=== PATIENT | female | born 1985 | race Caucasian/White ===

== ENCOUNTER 2017-05-23 15:03 | Emergency (ER) | payer OTHER ==
[2017-05-23 16:05] VITALS: BP 97/71
--- NOTE | 2017-05-23 16:58 | UC ---
Respiratory Complaint HPI - HPI Summary HPI Summary: patient presents with a sore throat and sinus congestion for the past week, is afebrile - History of Current Complaint Chief Complaint: UCRespiratory Stated Complaint: cough,sinuses Time Seen by Provider: 05/23/17 15:57 Hx Obtained From: Patient Hx Last Menstrual Period: 2014-ENDOMETRIAL ABLATION ?: No Onset/Duration: Sudden Onset, Lasting Days Timing: Constant Severity Initially: Mild Severity Currently: Moderate Character: Cough: Nonproductive Associated Signs And Symptoms: Positive: URI, Nasal Congestion - Allergies/Home Medications Allergies/Adverse Reactions: Allergies Allergy/AdvReac Type Severity Reaction Status Date / Time Latex Allergy Intermediate Rash Verified 05/23/17 16:00 Home Medications: Home Medications NK [No Home Medications Reported] 05/23/17 [History Confirmed 05/23/17] PMH/Surg Hx/FS Hx/Imm Hx Previously Healthy: Yes Other History Of: Negative For: HIV, Hepatitis B, Hepatitis C, Anticoagulant Therapy - Surgical History Surgical History: Yes Surgery Procedure, Year, and Place: 4 c-sections. novasure procedure - Family History Known Family History: Positive: Other - Denies [facility] ENT disorders Negative: Cardiac Disease, Hypertension, Diabetes - Social History Alcohol Use: None Substance Use Type: None Smoking Status (MU): Light Every Day Tobacco Smoker Type: Cigarettes Amount Used/How Often: 4 cigarettes daily - Immunization History Most Recent Influenza Vaccination: not this season 2016 Most Recent Tetanus Shot: 2011 Most Recent Pneumonia Vaccination: n/a Review of Systems Constitutional: Negative Skin: Negative Eyes: Negative ENT: Sore Throat, Nasal Discharge, Sinus Congestion Respiratory: Negative Cardiovascular: Negative Gastrointestinal: Negative Genitourinary: Negative Motor: Negative Neurovascular: Negative Musculoskeletal: Negative Neurological: Negative Psychological: Negative Is Patient Immunocompromised?: No All Other Systems Reviewed And Are Negative: Yes Physical Exam Triage Information Reviewed: Yes Appearance: No Pain Distress, Well-Nourished, Ill-Appearing Vital Signs: Initial Vital Signs Temp 98.5 F 05/23/17 16:01 Pulse 86 05/23/17 16:01 Resp 16 05/23/17 16:01 BP 97/71 05/23/17 16:01 Pulse Ox 99 05/23/17 16:01 Vital Signs Reviewed: Yes Eye Exam: Normal ENT: Positive: Pharyngeal erythema, Nasal congestion, TMs normal Dental Exam: Normal Neck exam: Normal Neck: Positive: Supple, Nontender, No Lymphadenopathy Respiratory Exam: Normal Respiratory: Positive: Chest non-tender, Lungs clear, Normal breath sounds Cardiovascular Exam: Normal Cardiovascular: Positive: RRR, No Murmur, Pulses Normal Abdominal Exam: Normal Abdomen Description: Positive: Nontender, No Organomegaly, Soft Bowel Sounds: Positive: Present Musculoskeletal Exam: Normal Musculoskeletal: Positive: Strength Intact, ROM Intact, No Edema Neurological Exam: Normal Neurological: Positive: Alert, Muscle Tone Normal Psychological Exam: Normal Skin Exam: Normal UC Diagnostic Evaluation - Laboratory O2 Sat by Pulse Oximetry: 99 Respiratory Course/Dx - Course Course Of Treatment: hx obtained, exam performed, meds reviewed, no meds prescribed. reviewed symptomatic treatment - Differential Dx/Diagnosis Differential Diagnosis/HQI/PQRI: Aspiration, Asthma, Influenza, Laryngitis, Sinusitis Provider Diagnoses: rhinosinusitis Discharge - Discharge Plan Condition: Stable Disposition: HOME Patient Education Materials: Rhinosinusitis (ED) Referrals: No Primary Care Phys,NOPCP [Primary Care Provider] - Additional Instructions: 1. Increase fluid intake and get plenty of rest 2. Cool mist humidification 3. Vaseline to the excoriation around the nose. 4. I recommend Claritin D for the sinus congestion, 5. Ibuprofen and tylenol for pain and fever. 6. FOllow up with any worsening symptoms.
== END 2017-05-23 17:16 | disposition home or self-care (01) ==
LOC: UCCORT 15:03
DX: J32.9 Chronic sinusitis, unspecified (principal); F17.210 Nicotine dependence, cigarettes, uncomplicated
CPT/HCPCS: 99211; G0463

== ENCOUNTER 2017-09-21 18:17 | Emergency (ER) | payer OTHER ==
[2017-09-21 18:40] VITALS: BP 104/63
--- NOTE | 2017-09-21 19:21 | UC ---
Throat Pain/Nasal Alvarado HPI - HPI Summary HPI Summary: Pt with 6 days congestion and cough. Pt now with blood tinged, green mucous from nose. Pt with post-tussive gagging and near vomit. Pt with fevers to 102.3m responsive to ibuprofen. Last dose yesterday. Pt has also taken dayquil and APAP. No rash. + body aches decreased appetite. + face and dental discomfort. 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 Pt's medications reviewed this visit - History of Current Complaint Chief Complaint: UCRespiratory Stated Complaint: VOMITING/COUGH/CONGESTION/FEVER Time Seen by Provider: 09/21/17 19:01 Hx Last Menstrual Period: 2014-ENDOMETRIAL ABLATION Pain Intensity: 6 - Allergies/Home Medications Allergies/Adverse Reactions: Allergies Allergy/AdvReac Type Severity Reaction Status Date / Time latex Allergy Rash Verified 09/21/17 18:34 PMH/Surg Hx/FS Hx/Imm Hx Previously Healthy: Yes Other History Of: Negative For: HIV, Hepatitis B, Hepatitis C, Anticoagulant Therapy - Surgical History Surgical History: Yes Surgery Procedure, Year, and Place: 4 c-sections. novasure procedure. endometrial ablation - Family History Known Family History: Positive: Other - Denies [facility] ENT disorders Negative: Cardiac Disease, Hypertension, Diabetes - Social History Occupation: Employed Part-time Lives: With Family Alcohol Use: None Substance Use Type: None Smoking Status (MU): Light Every Day Tobacco Smoker Type: Cigarettes Amount Used/How Often: 2 cigs/day - Immunization History Most Recent Influenza Vaccination: not this season 2016 Most Recent Tetanus Shot: 2011 Most Recent Pneumonia Vaccination: n/a Review of Systems Constitutional: Fever, Fatigue, Other - decreased appetite ENT: Sore Throat, Nasal Discharge, Sinus Congestion, Sinus Pain/Tenderness Respiratory: Cough Cardiovascular: Negative All Other Systems Reviewed And Are Negative: Yes Physical Exam Triage Information Reviewed: Yes Appearance: Well-Appearing, No Pain Distress, Well-Nourished, Other: - coarse cough Vital Signs: Initial Vital Signs Temp 97.9 F 09/21/17 18:34 Pulse 95 09/21/17 18:34 Resp 16 09/21/17 18:34 BP 104/63 09/21/17 18:34 Pulse Ox 100 09/21/17 18:34 Vital Signs Reviewed: Yes Eye Exam: Normal Eyes: Positive: Conjunctiva Clear ENT: Positive: Other - left TM + fluid, no erythema turbinates inflammed and boggy + thick PND uvula midline + TTP max sinuses L>R Dental Exam: Normal Neck exam: Normal Neck: Positive: Supple, Nontender, No Lymphadenopathy Respiratory Exam: Normal Respiratory: Positive: Chest non-tender, Lungs clear, Normal breath sounds, No respiratory distress, Other: - harsh cough no w/r Cardiovascular Exam: Normal Cardiovascular: Positive: RRR, No Murmur, Pulses Normal Abdominal Exam: Normal Abdomen Description: Positive: Nontender, No Organomegaly Bowel Sounds: Positive: Present Musculoskeletal Exam: Normal Musculoskeletal: Positive: Strength Intact Neurological Exam: Normal Neurological: Positive: Alert Psychological Exam: Normal Psychological: Positive: Normal Response To Family Skin Exam: Normal Throat Pain/Nasal Course/Dx - Course Course Of Treatment: Pt with cough, fever, congestion x 6 days. Pt with green blood tinged mucous. Pt with coarse cough. + TTP max sinuses. Abx - pt requesting liquid. pt refusing nasal steroid. decongestant. secretion precaution. motrin/apap. humidify air. pt requesting diflucan for abx related davon - Differential Dx/Diagnosis Provider Diagnoses: sinusitis Discharge - Discharge Plan Condition: Stable Disposition: HOME Prescriptions: Amoxicillin PO (*) [Amoxicillin 400 MG/5 ML SUSP*] 800 mg PO BID #140 ml Fluconazole [Diflucan] 150 mg PO ONCE PRN #1 tablet PRN Reason: yeast infection Patient Education Materials: Rhinosinusitis (ED) Referrals: Coty Preston MD [Primary Care Provider] - Additional Instructions: - Stay well hydrated. Drink plenty of non-alcoholic, non-caffinated beverages. - Alternate ibuprofen (Advil, Motrin) 600mg and Tylenol every 3 hours for pain or fever. Take with food. Do NOT take for more than 4-5 days. - okay to gargle and spit with warm salt water, 2-3 times a day - These infections are spread by secretions - do NOT share eating or drinking utensils - clean items you share with other people such as cell phones, computer mouse, TV remote, computer tablets, etc. After you have taken antibiotics for 3 days, change your toothbrush and your pillowcase. - get plenty of restful sleep - humidify the air in the room where you sleep - boil water, run a hot steam shower, vaporizer, cups of water by heat register - okay to take over the counter decongestant and cough medication - you have been given the treatment for yeast infection - okay to take as needed following antibiotics - contact your doctor, return here, or go to the emergency department with questions or concerns
== END 2017-09-21 19:26 | disposition home or self-care (01) ==
LOC: UCCORT 18:17
DX: J32.9 Chronic sinusitis, unspecified (principal); R50.9 Fever, unspecified; Z91.040 Latex allergy status; F17.210 Nicotine dependence, cigarettes, uncomplicated
CPT/HCPCS: 99212; G0463

== ENCOUNTER 2018-05-09 08:44 | Emergency (ER) | payer OTHER ==
[2018-05-09 09:24] VITALS: BP 96/74
--- NOTE | 2018-05-09 09:59 | ED ---
Respiratory - HPI Summary HPI Summary: 32 yr old female with the complaint of runny nose, cough, congestion,diarrhea. Onset of these recent symptoms over the weekend. She has had some sinus runny nose symptoms for the past few weeks as well. The patient has a daughter with similar symptoms. - History of Current Complaint Chief Complaint: UCRespiratory Stated Complaint: COUGH/FEVER/BODY ACHES Time Seen by Provider: 05/09/18 09:24 Pain Intensity: 7 - Allergy/Home Medications Allergies/Adverse Reactions: Allergies Allergy/AdvReac Type Severity Reaction Status Date / Time latex Allergy Rash Verified 05/09/18 09:08 Home Medications: Home Medications Dm/Acetaminophen/Doxylamine [Nighttime Cold-Flu Liquid] 15 ml PO PRN 05/09/18 [ History] Dm/Pseudoephed/Acetaminophen [Day-Time Multi-Symptom Co] 1 cap PO PRN 05/09/18 [ History] Ibuprofen TAB* [Advil TAB*] 600 mg PO Q6H PRN 05/09/18 [History Confirmed ] PMH/Surg Hx/FS Hx/Imm Hx Endocrine/Hematology History: Denies: Hx Anticoagulant Therapy, Hx Diabetes, Hx Thyroid Disease Cardiovascular History: Denies: Hx Congestive Heart Failure, Hx Deep Vein Thrombosis, Hx Hypertension , Hx Myocardial Infarction, Hx Pacemaker/ICD Respiratory History: Denies: Hx Asthma, Hx Chronic Obstructive Pulmonary Disease (COPD), Hx Lung Cancer, Hx Pneumonia, Hx Pulmonary Embolism GI History: Denies: Hx Gall Bladder Disease, Hx Gastrointestinal Bleed, Hx Ulcer, Hx Urosepsis History: Denies: Hx Kidney Stones, Hx Renal Disease Neurological History: Denies: Hx Dementia, Hx Migraine, Hx Seizures, Hx Transient Ischemic Attacks (TIA) Psychiatric History: Denies: Hx Anxiety, Hx Depression, Hx Schizophrenia, Hx Bipolar Disorder - Surgical History Surgery Procedure, Year, and Place: 4 c-sections. novasure procedure. endometrial ablation Infectious Disease History: No Infectious Disease History: Denies: Traveled Outside the [place] in Last 30 Days - Family History Known Family History: Positive: Other - Denies [facility] ENT disorders Negative: Cardiac Disease, Hypertension, Diabetes - Social History Alcohol Use: None Substance Use Type: Reports: None Smoking Status (MU): Light Every Day Tobacco Smoker Type: Cigarettes Amount Used/How Often: 5 cigs/day Review of Systems Positive: Chills, Fatigue Positive: Nasal Discharge Positive: Cough All Other Systems Reviewed And Are Negative: Yes Physical Exam Triage Information Reviewed: Yes Vital Signs On Initial Exam: Initial Vitals Temp Pulse Resp BP Pulse Ox 98.4 F 90 18 96/74 100 05/09/18 09:17 05/09/18 09:17 05/09/18 09:17 05/09/18 09:17 05/09/18 09:17 Vital Signs Reviewed: Yes Appearance: Positive: Well-Appearing, No Pain Distress Skin: Positive: Warm, Skin Color Reflects Adequate Perfusion Head/Face: Positive: Normal Head/Face Inspection Eyes: Positive: EOMI ENT: Positive: Nasal congestion, Nasal drainage, TMs normal Neck: Positive: Nontender Respiratory/Lung Sounds: Positive: Clear to Auscultation, Breath Sounds Present Cardiovascular: Positive: RRR Abdomen Description: Positive: Nontender Musculoskeletal: Positive: Strength/ROM Intact Neurological: Positive: Sensory/Motor Intact, Alert, Oriented to Person Place, Time, CN Intact II-III Psychiatric: Positive: Normal - Tequial Coma Scale Best Eye Response: 4 - Spontaneous Best Motor Response: 6 - Obeys Commands Best Verbal Response: 5 - Oriented Coma Scale Total: 15 Diagnostics - Vital Signs Vital Signs Temp Pulse Resp BP Pulse Ox 05/09/18 09:17 98.4 F 90 18 96/74 100 - Laboratory Lab Statement: Any lab studies that have been ordered have been reviewed, and results considered in the medical decision making process. Disposition - Course Course Of Treatment: 32 yr old with viral syndrome. Plan DC home symptomatic management. - Diagnoses Provider Diagnoses: Viral syndrome Discharge - Sign-Out/Discharge Documenting (check all that apply): Patient Departure All imaging exams completed and their final reports reviewed: No Studies - Discharge Plan Condition: Good Disposition: HOME Patient Education Materials: Viral Syndrome (ED) Referrals: Coty Preston MD [Primary Care Provider] - 2 Days - Billing Disposition and Condition Condition: GOOD Disposition: Home
== END 2018-05-09 10:10 | disposition home or self-care (01) ==
LOC: UCCORT 08:44
DX: B34.9 Viral infection, unspecified (principal); R05 Cough; R09.81 Nasal congestion; R19.7 Diarrhea, unspecified; F17.210 Nicotine dependence, cigarettes, uncomplicated; Z91.040 Latex allergy status
CPT/HCPCS: 99211; G0463

== ENCOUNTER 2018-06-04 07:59 | Emergency (ER) | payer OTHER ==
[2018-06-04 08:11] VITALS: BP 103/70
--- NOTE | 2018-06-04 08:39 | UC ---
Throat Pain/Nasal Alvarado HPI - HPI Summary HPI Summary: 32 y/o female with no PMH, no recent illnesses, ABX, with c/o sore throat, nasal discharge, difficulty swallowing, running nose. SYmpoms started thurs- scrathcy throat, increased to with burning sensation currently. able to swallow secretions well, + painful. No fever, chills. Tried theraflu, no help, no other medications. - History of Current Complaint Chief Complaint: UCRespiratory Stated Complaint: ST Time Seen by Provider: 06/04/18 08:24 Hx Obtained From: Patient Hx Last Menstrual Period: no menses d/t an ablasion in 2014 Onset/Duration: Sudden Onset, Lasting Days Severity: Severe Pain Intensity: 9 Pain Scale Used: 0-10 Numeric Cough: Productive - green w coughing Related History: Smoking - Allergies/Home Medications Allergies/Adverse Reactions: Allergies Allergy/AdvReac Type Severity Reaction Status Date / Time latex Allergy Rash Verified 06/04/18 08:11 Home Medications: Home Medications D-Methorphan/PE/Acetaminophen [Theraflu Expressmax Cold-Cough] 1 liq PO ONCE [History Confirmed 06/04/18] PMH/Surg Hx/FS Hx/Imm Hx Previously Healthy: Yes Other History Of: Negative For: HIV, Hepatitis B, Hepatitis C, Anticoagulant Therapy - Surgical History Surgical History: Yes Surgery Procedure, Year, and Place: 4 c-sections. novasure procedure. endometrial ablation - Family History Known Family History: Positive: Other - Denies [facility] ENT disorders Negative: Cardiac Disease, Hypertension, Diabetes - Social History Alcohol Use: None Substance Use Type: None Smoking Status (MU): Heavy Every Day Tobacco Smoker Type: Cigarettes Amount Used/How Often: 1/2 ppd Length of Time of Smoking/Using Tobacco: since age 14 Have You Smoked in the Last Year: Yes - Immunization History Most Recent Influenza Vaccination: not this season 2017 Most Recent Tetanus Shot: 2011 Most Recent Pneumonia Vaccination: n/a Review of Systems All Other Systems Reviewed And Are Negative: Yes Constitutional: Positive: Negative ENT: Positive: Sore Throat, Sinus Congestion, Sinus Pain/Tenderness Respiratory: Positive: Negative Physical Exam Triage Information Reviewed: Yes Appearance: Well-Appearing, No Pain Distress, Well-Nourished Vital Signs: Initial Vital Signs Temp 97.5 F 06/04/18 08:06 Pulse 100 06/04/18 08:06 Resp 16 06/04/18 08:06 BP 103/70 06/04/18 08:06 Pulse Ox 98 06/04/18 08:06 Vital Signs Reviewed: Yes Eyes: Positive: Conjunctiva Clear ENT: Positive: Hearing grossly normal, Pharyngeal erythema - minimal , no petechiae, no exudates, no swelling/ tonsillar enlargement, TMs normal, Hoarse voice - minimal, Uvula midline. Negative: Nasal congestion, Nasal drainage, TM bulging, TM dull, TM red, Tonsillar swelling, Tonsillar exudate, Dental tenderness, Sinus tenderness Neck: Positive: Supple, Nontender, Enlarged Nodes @ - minimal submand b/l, Other : - no posterior LAD,. Negative: Nuchal Rigidity Respiratory: Positive: Chest non-tender, Lungs clear, Normal breath sounds, No respiratory distress, No accessory muscle use. Negative: Crackles, Rhonchi, Stridor, Wheezing, Expiration Cardiovascular: Positive: RRR, No Murmur Throat Pain/Nasal Course/Dx - Course Course Of Treatment: rapid strep Negative, likely viral URI, short course steroid for pain, OTCs for pain, symptoms. follow up with PCP if no improvement within 2-3 days - Differential Dx/Diagnosis Differential Diagnosis/HQI/PQRI: Epiglottitis, Laryngitis, Peritonsillar Abscess Provider Diagnoses: viral pharyngitis/ laryngitis Discharge - Sign-Out/Discharge Documenting (check all that apply): Patient Departure All imaging exams completed and their final reports reviewed: No Studies - Discharge Plan Condition: Good Disposition: HOME Prescriptions: predniSONE [Prednisone 20 MG TAB] 20 mg PO DAILY #3 tablet Patient Education Materials: Pharyngitis (ED) Referrals: No Primary Care Phys,NOPCP [Primary Care Provider] - Additional Instructions: - INcrease fluid intake - FOllow up with PCP if no improvement within 2-3 days or go to ER with decreased swallowing, pain, fever > 101 - Steroids daily to help with pain, swelling - Tylenol as needed for pain - Billing Disposition and Condition Condition: GOOD Disposition: Home
== END 2018-06-04 08:47 | disposition home or self-care (01) ==
LOC: UCCORT 07:59
DX: J02.8 Acute pharyngitis due to other specified organisms (principal); J04.0 Acute laryngitis; F17.210 Nicotine dependence, cigarettes, uncomplicated
CPT/HCPCS: 87651; 99212; G0463

== ENCOUNTER 2018-06-26 08:32 | Emergency (ER) | payer OTHER ==
[2018-06-26 09:04] VITALS: BP 102/59
--- NOTE | 2018-06-26 09:12 | UC ---
UC Dental HPI - HPI Summary HPI Summary: Pt presents with c/o sudden on set of left upper gum swelling and tenderness that began last evening. - History of Current Complaint Chief Complaint: UCDentalProblem Stated Complaint: DENTAL COMPLAINT Time Seen by Provider: 06/26/18 09:06 Hx Obtained From: Patient Hx Last Menstrual Period: 08/26/14 ?: No Onset/Duration: Sudden Onset, Lasting Hours Severity: Mild Pain Intensity: 3 Aggravating Factor(s): Other - touch Related History: Swelling - Allergies/Home Medications Allergies/Adverse Reactions: Allergies Allergy/AdvReac Type Severity Reaction Status Date / Time latex Allergy Rash Verified 06/26/18 09:04 PMH/Surg Hx/FS Hx/Imm Hx Previously Healthy: Yes Other History Of: Negative For: HIV, Hepatitis B, Hepatitis C, Anticoagulant Therapy - Surgical History Surgical History: Yes Surgery Procedure, Year, and Place: 4 c-sections. novasure procedure. endometrial ablation - Family History Known Family History: Positive: Other - sister of frrequent dental abscess Negative: Cardiac Disease, Hypertension, Diabetes - Social History Occupation: Employed Full-time Lives: With Family Alcohol Use: None Substance Use Type: None Smoking Status (MU): Light Every Day Tobacco Smoker Type: Cigarettes Amount Used/How Often: 1/2 ppd Length of Time of Smoking/Using Tobacco: since age 14 Have You Smoked in the Last Year: Yes - Immunization History Most Recent Influenza Vaccination: not this season 2016 Most Recent Tetanus Shot: 2011 Most Recent Pneumonia Vaccination: n/a Review of Systems All Other Systems Reviewed And Are Negative: Yes Constitutional: Positive: Negative Skin: Positive: Negative Eyes: Positive: Negative ENT: Positive: Dental Pain Respiratory: Positive: Negative Cardiovascular: Positive: Negative Gastrointestinal: Positive: Negative Genitourinary: Positive: Negative Motor: Positive: Negative Neurovascular: Positive: Negative Musculoskeletal: Positive: Negative Neurological: Positive: Negative Psychological: Positive: Negative Is Patient Immunocompromised?: No Physical Exam Triage Information Reviewed: Yes Appearance: Well-Appearing Vital Signs: Initial Vital Signs Temp 98.1 F 06/26/18 08:56 Pulse 75 06/26/18 08:56 Resp 14 06/26/18 08:56 BP 102/59 06/26/18 08:56 Pulse Ox 100 06/26/18 08:56 Vital Signs Reviewed: Yes Eye Exam: Normal ENT Exam: Normal Dental: Positive: Other: - swelling left upper gum, by left canine Neck exam: Normal Respiratory Exam: Normal Cardiovascular Exam: Normal Musculoskeletal Exam: Normal Neurological Exam: Normal Psychological Exam: Normal Skin Exam: Normal Dental Complaint Course/Dx - Differential Dx/Diagnosis Differential Diagnosis/Dx: Dental Abscess, Peridontic Disease Provider Diagnosis: Family history of dental abscess, Gum abscess Discharge - Sign-Out/Discharge Documenting (check all that apply): Patient Departure All imaging exams completed and their final reports reviewed: No Studies - Discharge Plan Condition: Stable Disposition: HOME Prescriptions: Amoxicillin PO (*) [Amoxicillin 400 MG/5 ML SUSP*] 6 ml PO Q12H #84 ml Patient Education Materials: Dental Abscess (ED) Referrals: [facility] [Outside] No Primary Care Phys,NOPCP [Primary Care Provider] - - Billing Disposition and Condition Condition: STABLE Disposition: Home - Attestation Statements Provider Attestation: Per institutional requirements, I have reviewed the chart, however, I was not consulted specifically or made aware of this patient by the midlevel provider. I did not personally evaluate, interact with , or disposition this patient.
== END 2018-06-26 09:23 | disposition home or self-care (01) ==
LOC: UCCORT 08:32
DX: K05.219 Aggressive periodontitis, localized, unspecified severity (principal); F17.210 Nicotine dependence, cigarettes, uncomplicated
CPT/HCPCS: 99212; G0463

== ENCOUNTER 2019-07-14 08:51 | Emergency (ER) | payer OTHER ==
[2019-07-14 09:15] VITALS: BP 114/63
--- NOTE | 2019-07-14 10:03 | UC ---
Complaint Female HPI - HPI Summary HPI Summary: Patient is a 34-year-old female presenting with "vaginal odor" x2 days. Patient states she has had BV in the past and is almost certain that this is what it is. Patient denies symptoms feeling like yeast infection. Patient denies concern for STIs. Denies abnormal bleeding with last menstrual period being 2014. Notes mild discomfort during intercourse, but no pain otherwise. Denies abdominal pain. Denies nausea or vomiting. Denies abnormal discharge. Denies urinary symptoms. - History Of Current Complaint Chief Complaint: UCGeneralIllness Stated Complaint: PERSONAL Hx Obtained From: Patient Hx Last Menstrual Period: ablation 2014 Pain Intensity: 0 - Allergies/Home Medications Allergies/Adverse Reactions: Allergies Allergy/AdvReac Type Severity Reaction Status Date / Time latex Allergy Rash Verified 07/14/19 09:11 PMH/Surg Hx/FS Hx/Imm Hx Other History Of: Negative For: HIV, Hepatitis B, Hepatitis C, Anticoagulant Therapy - Surgical History Surgical History: Yes Surgery Procedure, Year, and Place: 4 c-sections. novasure procedure. endometrial ablation - Family History Known Family History: Positive: Other - sister of frrequent dental abscess Negative: Cardiac Disease, Hypertension, Diabetes - Social History Alcohol Use: None Substance Use Type: None Smoking Status (MU): Light Every Day Tobacco Smoker Type: Cigarettes Amount Used/How Often: 4-5 cigarettes daily Length of Time of Smoking/Using Tobacco: since age 14 Have You Smoked in the Last Year: Yes - Immunization History Most Recent Influenza Vaccination: not this season 2016 Most Recent Tetanus Shot: 2011 Most Recent Pneumonia Vaccination: n/a Review of Systems All Other Systems Reviewed And Are Negative: No Constitutional: Positive: Negative. Negative: Fever, Chills ENT: Positive: Negative Respiratory: Positive: Negative Cardiovascular: Positive: Negative Gastrointestinal: Positive: Negative. Negative: Abdominal Pain, Vomiting, Nausea Genitourinary: Positive: Other - Abnormal vaginal odor. Negative: Dysuria, Hematuria, Frequency, Urgency, Vaginal/Penile Burning, Vaginal/Penile Itching, Vaginal/Penile Discharge, Vaginal/Penile Pain, Vaginal/Penile Tenderness, Ulceration/Lesion, Abnormal Bleeding Musculoskeletal: Positive: Negative Neurological: Positive: Negative Physical Exam Triage Information Reviewed: Yes Appearance: Well-Appearing, No Pain Distress, Well-Nourished Vital Signs: Initial Vital Signs Temp 98.1 F 07/14/19 09:11 Pulse 81 07/14/19 09:11 Resp 13 07/14/19 09:11 BP 114/63 07/14/19 09:11 Pulse Ox 98 07/14/19 09:11 Lab Results 07/14/19 Range/Units 09:50 POC Urine Color Yellow POC Urine Clarity Cloudy POC Urine pH 6.5 (5-9) POC Ur Specif [place] 1.015 (1.010-1.030) POC Urine Protein Negative (Negative) POC Ur Glucose (UA) Negative (Negative) POC Urine Ketones Negative (Negative) POC Urine Blood Negative (Negative) POC Urine Nitrite Positive (Negative) POC Urine Bilirubin Negative (Negative) POC Urine Urobilinogen 0.2 (Negative) POC U Leukocyte Esteras Negative (Negative) Vital Signs Reviewed: Yes Eyes: Positive: Conjunctiva Clear ENT: Positive: Hearing grossly normal Neck: Positive: Supple Respiratory: Positive: No respiratory distress Abdominal Exam: Normal Abdomen Description: Positive: Nontender, Soft. Negative: CVA Tenderness (R), CVA Tenderness (L) Neurological: Positive: Alert Psychological: Positive: Age Appropriate Behavior Complaint Female Dx - Course Course Of Treatment: Patient presents with c/o abnormal vaginal odor. Patient declined pelvic exam. Declined testing for G/C. Patient verbally agreed to self swab and be treated with Flagyl for possible BV infection. Patient also requested diflucan in case antibiotics cause yeast infection. Patient also able to take diflucan if swab results come back as yeast infection. Informed patient that she would be called with any positive results. Instructed to follow up with PCP or CONCRETE INSPECTOR if symptoms persist. Patient voiced understanding and agreed with treatment plan. - Differential Dx/Diagnosis Differential Diagnosis/HQI/PQRI: Sexually Transmitted Disease, Other - BV, vaginal candidiasis Provider Diagnosis: Vaginal odor Discharge ED - Sign-Out/Discharge Documenting (check all that apply): Patient Departure All imaging exams completed and their final reports reviewed: No Studies - Discharge Plan Condition: Stable Disposition: HOME Prescriptions: Fluconazole 150 MG TAB* [Diflucan 150 MG TAB*] 150 mg PO SEE INSTRUCTIONS PRN # 2 tablet PRN Reason: Itching metroNIDAZOLE [Flagyl] 500 mg PO BID #14 tablet Patient Education Materials: Metronidazole (By mouth), Bacterial Vaginosis (ED) Referrals: MohamudIn-MD Senait [Primary Care Provider] - If Needed Additional Instructions: As discussed, take Flagyl as prescribed for treatment of possible BV. Do not consume alcohol while take this medication, as it may cause severe stomach upset. Take Diflucan as prescribed if you experience symptoms of yeast infection. Your swab has been sent for culture and you will be notified with any results warranting change in treatment. Follow up with your primary care provider or CONCRETE INSPECTOR if symptoms persist. - Billing Disposition and Condition Condition: STABLE Disposition: Home
--- NOTE | 2019-07-16 07:17 | UC ---
- Progress Note Progress Note: Preliminary UCx with E coli 75-100k Macrobid sent in. Course/Dx - Diagnoses Provider Diagnoses: Vaginal odor Discharge ED - Sign-Out/Discharge Documenting (check all that apply): Post-Discharge Follow Up All imaging exams completed and their final reports reviewed: No Studies - Discharge Plan Condition: Stable Disposition: HOME Prescriptions: Fluconazole 150 MG TAB* [Diflucan 150 MG TAB*] 150 mg PO SEE INSTRUCTIONS PRN # 2 tablet PRN Reason: Itching metroNIDAZOLE [Flagyl] 500 mg PO BID #14 tablet Nitrofurantoin Macrocrystals* [Macrodantin 100 mg*] 100 mg PO BID #14 cap Patient Education Materials: Metronidazole (By mouth), Bacterial Vaginosis (ED) Referrals: Andrew Mallory-MD Senait [Primary Care Provider] - If Needed Additional Instructions: As discussed, take Flagyl as prescribed for treatment of possible BV. Do not consume alcohol while take this medication, as it may cause severe stomach upset. Take Diflucan as prescribed if you experience symptoms of yeast infection. Your swab has been sent for culture and you will be notified with any results warranting change in treatment. Follow up with your primary care provider or DISPATCHER RADIO if symptoms persist. - Billing Disposition and Condition Condition: STABLE Disposition: Home
== END 2019-07-14 10:27 | disposition home or self-care (01) ==
LOC: UCCORT 08:51
DX: N89.8 Other specified noninflammatory disorders of vagina (principal); F17.210 Nicotine dependence, cigarettes, uncomplicated; Z91.040 Latex allergy status
CPT/HCPCS: 81003; 87077; 87086; 87186; 87480; 87510; 87660; 99212; G0463

== ENCOUNTER 2019-11-01 16:28 | Emergency (ER) | payer OTHER ==
[2019-11-01 16:56] VITALS: BP 114/47
--- NOTE | 2019-11-01 17:24 | UC ---
Complaint Female HPI - HPI Summary HPI Summary: Pt presents with c/o sudden onest of urinary frequency and urgency X 1 day. Pt also c/o abnormal vaginal odor but no unusual discharge, pain or risk for STD's . Pt denies risk for pt has had tubal ligation and uterine ablation. 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 Denies any vaginal bleeding. - History Of Current Complaint Chief Complaint: UCGU Stated Complaint: POSS UTI Time Seen by Provider: 11/01/19 16:48 Hx Obtained From: Patient Hx Last Menstrual Period: s/p Uterine Ablation ?: No Onset/Duration: Sudden Onset, Lasting Days, Still Present Timing: Constant Severity Initially: Mild Severity Currently: Mild Pain Intensity: 2 Pain Scale Used: 0-10 Numeric Character: Dull Aggravating Factor(s): Urination Alleviating Factor(s): Nothing Associated Signs And Symptoms: Positive: Negative - Risk Factors Ectopic Risk Factor: Maternal Age ^ 30, Prior Pelvic Surgery, Tubal Ligation Ovarian Torsion Risk Factor: Reproductive Age, Tubal Ligation - Allergies/Home Medications Allergies/Adverse Reactions: Allergies Allergy/AdvReac Type Severity Reaction Status Date / Time latex Allergy Rash Verified 11/01/19 16:49 Home Medications: Home Medications Cephalexin CAP* [Keflex 500 CAP*] 500 mg PO Q12H #14 cap 11/01/19 [Rx] Cranberry Conc/Ascorbic Acid [Cranberry Concentrate Softgel] 4,200 cap PO ONCE 11/01/19 [History Confirmed 11/01/19] Phenazopyridine HCl [Urinary Pain Relief] 195 mg PO ONCE 11/01/19 [History Confirmed 11/01/19] PMH/Surg Hx/FS Hx/Imm Hx Previously Healthy: Yes Other History Of: Negative For: HIV, Hepatitis B, Hepatitis C, Anticoagulant Therapy - Surgical History Surgical History: Yes Surgery Procedure, Year, and Place: 4 c-sections. novasure procedure. endometrial ablation - Family History Known Family History: Positive: Other - sister of frrequent dental abscess Negative: Cardiac Disease, Hypertension, Diabetes - Social History Occupation: Employed Full-time Lives: With Family Alcohol Use: None Substance Use Type: None Smoking Status (MU): Light Every Day Tobacco Smoker Type: Cigarettes Amount Used/How Often: ~1/4 PPD Length of Time of Smoking/Using Tobacco: Since Age 14 Have You Smoked in the Last Year: Yes - Immunization History Most Recent Influenza Vaccination: not this season 2017 Most Recent Tetanus Shot: 2011 Most Recent Pneumonia Vaccination: n/a Vaccination Up to Date: Yes Review of Systems All Other Systems Reviewed And Are Negative: Yes Constitutional: Positive: Negative Skin: Positive: Negative Eyes: Positive: Negative ENT: Positive: Negative Respiratory: Positive: Negative Cardiovascular: Positive: Negative Gastrointestinal: Positive: Negative Genitourinary: Positive: Frequency, Urgency, Other - c/o vaginal odor Motor: Positive: Negative Neurovascular: Positive: Negative Musculoskeletal: Positive: Negative Neurological/Mental Status: Positive: Negative Psychological: Positive: Negative Is Patient Immunocompromised?: No Physical Exam Triage Information Reviewed: Yes Appearance: Well-Appearing Vital Signs: Initial Vital Signs Temp 98.8 F 11/01/19 16:46 Pulse 78 11/01/19 16:46 Resp 16 11/01/19 16:46 BP 114/47 11/01/19 16:46 Pulse Ox 98 11/01/19 16:46 Vital Signs Reviewed: Yes Eye Exam: Normal ENT Exam: Normal Dental Exam: Normal Neck exam: Normal Respiratory Exam: Normal Respiratory: Positive: Normal breath sounds, No respiratory distress Cardiovascular Exam: Normal Abdominal Exam: Normal Abdomen Description: Positive: Nontender Pelvic Exam: Positive: Other - 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 - Differential Dx/Diagnosis Differential Diagnosis/HQI/PQRI: Sexually Transmitted Disease, Urinary Tract Infection, Other - BV Provider Diagnosis: Urinary frequency Discharge ED - Sign-Out/Discharge Documenting (check all that apply): Patient Departure All imaging exams completed and their final reports reviewed: No Studies - Discharge Plan Condition: Stable Disposition: HOME Prescriptions: Cephalexin CAP* [Keflex 500 CAP*] 500 mg PO Q12H #14 cap Patient Education Materials: Urinary Urgency and Frequency (DC) Referrals: Annita Mallory MD [Medical Doctor] - As Soon As Possible Additional Instructions: Please follow up with your PCP a soon as you are able. It is recommended that you follow up with your PCP with your complaint of frequent urinary tract infections. 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 - Billing Disposition and Condition Condition: STABLE Disposition: Home - Attestation Statements Provider Attestation: This patient was not seen by me. I was available for consult. Chart reviewed. BESS
--- NOTE | 2019-11-03 16:12 | UC ---
- Progress Note Progress Note: urine culture shows growth of E. coli, but final sensitivity is pending. She is on cephalexin, and symptoms should be improving. If a change of antibiotic is needed, sensitivity should be available tomorrow. She has Gardnerella, which likely accounts for her vaginal odor. Additional treatment is needed for this, and rx has been sent for oral metronidazole to her pharmacy. Advise no alcohol during use and for 24 hours post treatment. Course/Dx - Diagnoses Provider Diagnoses: Urinary frequency Discharge ED - Sign-Out/Discharge Documenting (check all that apply): Post-Discharge Follow Up All imaging exams completed and their final reports reviewed: No Studies - Discharge Plan Condition: Stable Disposition: HOME Prescriptions: Cephalexin CAP* [Keflex 500 CAP*] 500 mg PO Q12H #14 cap Patient Education Materials: Urinary Urgency and Frequency (DC) Referrals: Annita Mallory MD [Medical Doctor] - As Soon As Possible Additional Instructions: Please follow up with your PCP a soon as you are able. It is recommended that you follow up with your PCP with your complaint of frequent urinary tract infections. 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 - Billing Disposition and Condition Condition: STABLE Disposition: Home
--- NOTE | 2019-11-06 18:52 | UC ---
- Progress Note Progress Note: Rash (hives) stop both antibiotics (keflex and flagyl) macrobid bid x 7 days follow PCP re BV Course/Dx - Diagnoses Provider Diagnoses: Urinary frequency Discharge ED - Sign-Out/Discharge Documenting (check all that apply): Post-Discharge Follow Up All imaging exams completed and their final reports reviewed: No Studies - Discharge Plan Condition: Stable Disposition: HOME Prescriptions: metroNIDAZOLE * [Flagyl] 500 mg PO BID #14 tablet Nitrofurantoin Monohyd/M-Cryst [Macrobid 100 mg Capsule] 100 mg PO BID #14 cap Patient Education Materials: Urinary Urgency and Frequency (DC) Referrals: Annita Mallory MD [Medical Doctor] - As Soon As Possible Additional Instructions: Please follow up with your PCP a soon as you are able. It is recommended that you follow up with your PCP with your complaint of frequent urinary tract infections. 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 - Billing Disposition and Condition Condition: STABLE Disposition: Home
== END 2019-11-01 17:18 | disposition home or self-care (01) ==
LOC: UCCORT 16:28
DX: R35.0 Frequency of micturition (principal); Z91.040 Latex allergy status; F17.210 Nicotine dependence, cigarettes, uncomplicated
CPT/HCPCS: 87077; 87086; 87186; 87480; 87510; 99212; G0463